=== PATIENT | male | born 1995 ===

== ENCOUNTER 2020-12-21 18:14 | Emergency (ER) | payer OTHER ==
[~2020-12-21] VITALS: Ht 172.7 cm; Wt 75.0 kg
== END 2020-12-21 19:52 | disposition home or self-care (01) ==
LOC: ER 18:14
DX: S93.402A Sprain of unspecified ligament of left ankle, initial encounter (principal); X50.1XXA Overexertion from prolonged static or awkward postures, initial encounter
CPT/HCPCS: 29515; 73610; 99283-25; L1906